=== PATIENT | male | born 1995 | race African-American/Black ===

== ENCOUNTER 2018-01-24 00:07 | Emergency (ER) | payer SELFPAY ==
[2016-12-13 08:45] VITALS: BMI 25.1
[2018-01-24] VITALS (11 sets, daily range): BP systolic 100–123; BP diastolic 42–66; PULSE 56–94; RESP 14–23; TEMP 36.1; O2SAT 97–100; BMI 25.9
[2018-01-24] MEDS: Naloxone 2 MG/2 ML Syringe IV (00:13)
--- NOTE | 2018-01-24 00:15 | CT_ITS ---
HISTORY: AMSAltered Mental Status,Pt unresponsive and does not respond to sternal rub.? etoh TECHNIQUE: Multiple axial images were obtained of the brain without intravenous contrast. A radiation dose optimization technique was used for this scan. IV Contrast dosage and agent: None. COMPARISON: None FINDINGS: Normal ventricles. Morris-white matter differentiation appears normal. No intracranial mass, hemorrhage, or acute disease. Posterior fossa structures are unremarkable. No suspicious extra-axial fluid collection. Intact calvarium. As visualized, the mastoids and paranasal sinuses appear clear. CT/Brain/Head without Contrast IMPRESSION: Normal CT brain without contrast. Individualized dose optimization techniques were used for this CT. at 0104 Reported and signed by: Nikko Hollins MD Electronically Signed: Nikko Hollins, at 1:02 EST Tel , Service support ,
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
[2018-01-24] MEDS: Ondansetron 4 MG/2 ML Vial IV (00:20)
[2018-01-24] MEDS: 0.9% Normal Saline 1,000 ML 999 ML IV ×2 (00:20)
[2018-01-24 00:23] LABS: Absolute Lymphocyte Count 3.42 X10^3/ul (0.83-4.51); Basophil# 0.04 X10^3/uL; Basophil% 0.5 % (0-1); Eosinophil# 0.15 X10^3/uL; Eosinophils% 1.8 % (0-5); Lymphocyte # 3.42 X10^3/ul (4.0); Lymphocyte % 40.8 % (19-41); Mean Corp Hgb Conc 33.3 g/gl (32-36); Mean Corpuscular Hgb 30.3 pg (27.0-32.0); Mean Corpuscular Volume 90.9 fL (80-94); Mean Platelet Vol. 8.5 fl (6.2-12.0); Monocyte# 0.81 X10^3/uL; Monocyte% 9.7 % (0-10); Neutrophil # 3.96 X10^3/uL (2.7-7.7); Neutrophil % 47.2 % (47-70); Platelet Count 239 K/mm3 (150-450); RBC Distribution Width CV 12.7 % (11.6-14.6); RBC Distribution Width SD 42.1 fl (35.1-43.9); Red Blood Count 4.29 M/mm3 (4.6-6.2); White Blood Count 8.4 K/mm3 (4.4-11.0)
[2018-01-24 00:24] LABS: POSITIVE COUNT NO; POSITIVE DIFFERENTIAL NO; POSITIVE MORPHOLOGY NO
[2018-01-24 00:30] LABS: Bedside Glucose 79 mg/dL (70-110)
[2018-01-24 00:34] LABS: Anion Gap 8 (5-15); BUN 13 mg/dL (7-18); BUN/Creat Ratio 9.9 RATIO (10-20); Calcium,Total 8.4 mg/dL (8.5-10.1); Chloride 106 mmol/L (98-107); Creatinine, Serum 1.31 mg/dL (0.70-1.30); EST Glomerular Filtration Rate 74 mL/min (>60); Est Glom Filt Rate - Afr Amer 90 mL/min (>60); Estimated Creatinine Clearance 98.73 ml/min; Glucose 91 mg/dL (74-106); Potassium 3.3 mmol/L (3.5-5.1); Sodium Level 142 mmol/L (136-145)
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
[2018-01-24 05:31] LABS: Bedside Glucose 86 mg/dL (70-110)
--- NOTE | 2018-01-24 09:17 | ED.RN ---
pt wakes more easily. opens eyes, answers question. remains sleepy. reg to talk with pt and pt okay for discharge.
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
== END 2018-01-24 09:44 | disposition home or self-care (01) ==
LOC: ED 09:25
PROVIDERS: Emergency Provider Emergency Medicine; Family Provider Pediatrics; PCP Pediatrics
DX: F10.129 Alcohol abuse with intoxication, unspecified (principal); Y90.9 Presence of alcohol in blood, level not specified; G40.909 Epilepsy, unspecified, not intractable, without status epilepticus; Z79.899 Other long term (current) drug therapy
CPT/HCPCS: 70450; 80048; 80320; 82962; 85025; 96361; 96374; 96375; 99285; J7030; G0480; J2405